=== PATIENT | female | born 1985 | race Caucasian/White ===

== ENCOUNTER 2022-12-27 13:25 | Inpatient (IN) | payer MEDICAID ==
[~2022-12-27] VITALS: Ht 172.7 cm; Wt 58.5 kg
[2022-12-27 14:31] LABS: BASOPHILS % (AUTO) 0.5 % (0.0-2.0); EOSINOPHILS % (AUTO) 0.4 % (1.0-6.0); HEMATOCRIT 40.3 % (36-46); HEMOGLOBIN 13.2 g/dL (12.0-16.0); LYMPHOCYTES # (AUTO) 2.1 K/uL (1.0-4.8); LYMPHOCYTES % (AUTO) 19.2 % (22.0-44.0); MEAN CORPUSCULAR HEMOGLOBIN 29.8 pg (26.0-34.0); MEAN CORPUSCULAR HGB CONC 32.7 G/dL (31.0-37.0); MEAN CORPUSCULAR VOLUME 91 fL (80-100); MONOCYTES # (AUTO) 0.8 K/uL (0.1-1.0); MONOCYTES % (AUTO) 7.3 % (2.0-9.0); NEUTROPHILS % (AUTO) 72.6 % (40.0-70.0); PLATELET COUNT (AUTO) 264 K/uL (150-450); RED BLOOD CELL COUNT(AUTO) 4.42 MIL/uL (4.00-5.20); WHITE BLOOD COUNT (AUTO) 11.1 K/uL (4.5-11.0)
[2022-12-27 14:50] LABS: ALCOHOL, BLOOD (SERUM) < 3 mg/dL (0-10)
[2022-12-27 15:00] LABS: APPEARANCE,URINE HAZY (CLEAR); BILIRUBIN,URINE NEGATIVE (NEGATIVE); COLOR,URINE YELLOW (YELLOW); GLUCOSE, URINE (UA) NEGATIVE (NEGATIVE); KETONES,URINE NEGATIVE (NEGATIVE); LEUKOCYTE ESTERASE ,URINE TRACE (NEGATIVE); NITRATE,URINE NEGATIVE (NEGATIVE); OCCULT BLOOD,URINE NEGATIVE (NEGATIVE); PH,URINE 6.5 (5.0-8.0); PH,URINE DRUG SCREEN 6.5 (5.0-8.0); PROTEIN,URINE 30-70 mg/dL (NEGATIVE); SPECIFIC GRAVITIY, URINE 1.027 (1.003-1.030)
[2022-12-27 15:02] LABS: ALANINE AMINOTRANSFERASE 14 U/L (12-78); ALBUMIN 3.4 g/dL (3.4-5.0); ALKALINE PHOSPHATASE 83 U/L (46-116); ASPARTATE AMINOTRANSFERASE 15 U/L (15-37); BILIRUBIN,TOTAL 0.7 mg/dL (0.1-1.0); CALCIUM, TOTAL 8.9 mg/dL (8.8-10.5); CARBON DIOXIDE 22 mmol/L (22-29); CREATININE 0.51 mg/dL (0.60-1.30); GLOMERULAR FILTR. RATE CALC > 60 mL/min (>60); GLUCOSE,RANDOM 103 mg/dL (70-110); HCG,QUANTITATIVE < 1 mIU/mL (0-6); THYROID STIMULATING HORMONE 1.61 uIU/mL (0.36-3.74); TOTAL PROTEIN, SERUM 7.1 g/dL (6.4-8.2); UREA NITROGEN, BLOOD 14 mg/dL (7-18)
[2022-12-27 15:13] LABS: ANION GAP 12 mmol/L (8-16); CHLORIDE 106 mmol/L (98-107); POTASSIUM 3.5 mmol/L (3.5-5.1); SODIUM SERUM 140 mmol/L (136-145)
[2022-12-27 15:13] LABS: RBC,URINE None Seen /HPF (0-2); SQUAMOUS EPITHELIAL CELL,UR Many /LPF (None Seen)
[2022-12-27 15:15] LABS: ALCOHOL, URINE DRUG SCREEN NEGATIVE (NEGATIVE); AMPHET/METH SCREEN,URINE POSITIVE (NEGATIVE); BACTERIA,URINE Moderate /HPF (None Seen); BARBITURATE SCREEN, URINE NEGATIVE (NEGATIVE); BENZODIAZEPINES SCREEN,URINE NEGATIVE (NEGATIVE); CANNABINOID SCREEN,URINE NEGATIVE (NEGATIVE); COCAINE SCREEN,URINE POSITIVE (NEGATIVE); METHADONE SCREEN, URINE NEGATIVE (NEGATIVE); OPIATE SCREEN,URINE NEGATIVE (NEGATIVE); PHENCYCLIDINE SCREEN,URINE NEGATIVE (NEGATIVE)
[2022-12-27] MEDS ORDERED: LORazepam 1 MG TABLET PO ONE (16:30)
[2022-12-27] MEDS ORDERED: MAGNESIUM HYDROXIDE SUSPENSION 30 ML UDCUP PO PRN (20:15)
[2022-12-27] MEDS ORDERED: MAG HYDROX/AL HYDROX/SIMETH ES 30 ML SUSPENSION UDCUP PO PRN (20:15)
[2022-12-27] MEDS ORDERED: CYANOCOBALAMIN 1,000 MCG/ML VIAL IM ONE (20:15)
[2022-12-27] MEDS ORDERED: OLANZapine 5 MG RAPDIS TABLET PO ONE (20:15)
[2022-12-27] MEDS ORDERED: LOPERAMIDE HCL 2 MG CAPSULE PO PRN (20:15)
[2022-12-27] MEDS ORDERED: TUBERCULIN, PURIFIED PROTEIN DERIVATIVE 5 TU/0.1 ML SYRINGE ID ONE (20:15)
[2022-12-27] MEDS ORDERED: CloNIDine HCL 0.1 MG TABLET PO PRN (20:15)
[2022-12-27] MEDS ORDERED: GuaiFENesin/D-METHORPHAN [SUGAR-FREE] 200-20MG/10 ML SYRUP UDCUP PO PRN (20:15)
[2022-12-27] MEDS ORDERED: GABAPENTIN 300 MG CAPSULE PO PRN (20:15)
[2022-12-27] MEDS: HydrOXYzine PAMOATE 50 MG CAPSULE PO PRN (20:35)
[2022-12-27] MEDS: MELATONIN 5 MG TABLET PO SCH (20:36)
[2022-12-27] MEDS: GABAPENTIN 400 MG CAPSULE PO SCH (20:43)
[2022-12-27] MEDS: THIAMINE 100 MG TABLET PO SCH (20:44)
[2022-12-27] MEDS: ACETAMINOPHEN 325 MG TABLET PO PRN (21:15)
[2022-12-27] MEDS: IBUPROFEN 600 MG TABLET PO PRN (21:15)
[2022-12-27] MEDS: CloNIDine HCL 0.1 MG TABLET PO SCH (22:00)
[2022-12-28 08:30] LABS: HEMOGLOBIN A1C 5.1 % (3.8-5.6)
[2022-12-28 08:33] LABS: CHOL/HDL RATIO 2.1 (3.9-5.7); FREE T4 (FREE THYROXINE) 1.23 ng/dL (0.76-1.46); THYROID STIMULATING HORMONE 1.41 uIU/mL (0.36-3.74)
[2022-12-28] MEDS: OMEGA-3/DHA/EPA/FISH OIL 1,000 MG CAPSULE PO SCH (08:42)
[2022-12-28] MEDS: FOLIC ACID 1 MG TABLET PO SCH (08:43)
[2022-12-28] MEDS: THIAMINE 100 MG TABLET PO SCH ×2 (08:43→16:08)
[2022-12-28] MEDS: MULTIVITAMINS WITH MINERALS, THERAPEUTIC TABLET PO SCH (08:44)
[2022-12-28] MEDS: GABAPENTIN 400 MG CAPSULE PO SCH ×4 (08:49→20:12)
[2022-12-28] MEDS ORDERED: NALTREXONE HCL 50 MG TABLET PO SCH (09:00)
[2022-12-28 09:17] LABS: COVID AG,FIA SOURCE NASAL SWAB
[2022-12-28 09:41] LABS: SARS-COV2 (COVID) ANTIGEN,FIA Negative (Negative)
[2022-12-28] MEDS: CloNIDine HCL 0.1 MG TABLET PO SCH ×3 (12:00→20:12)
[2022-12-28] MEDS ORDERED: GABAPENTIN 400 MG CAPSULE PO ONE (12:15)
[2022-12-28] MEDS ORDERED: QUEtiapine FUMARATE 100 MG TABLET PO ONE (12:15)
[2022-12-28] MEDS ORDERED: PNEUMOCOCCAL VACCINE POLYVALENT 0.5 ML SYRINGE [PPSV23] IM. ONE (12:30)
[2022-12-28 14:15] VITALS: BP 110/68; PULSE 82; RESP 17; TEMP 97.5; O2SAT 98
[2022-12-28 15:15] VITALS: BP 105/70; PULSE 85; RESP 18; TEMP 97.8; O2SAT 97
[2022-12-28] MEDS: QUEtiapine FUMARATE 100 MG TABLET PO PRN (16:08)
[2022-12-28] MEDS: HydrOXYzine PAMOATE 50 MG CAPSULE PO PRN (16:09)
[2022-12-28 16:15] VITALS: BP 102/62; PULSE 81; RESP 18; TEMP 97.5; O2SAT 97
[2022-12-28 17:15] VITALS: RESP 18
[2022-12-28] MEDS: DIVALPROEX SODIUM 500 MG ER TABLET PO SCH (20:12)
[2022-12-28] MEDS: MELATONIN 5 MG TABLET PO SCH (20:12)
[2022-12-28] MEDS ORDERED: OLANZapine 5 MG RAPDIS TABLET PO SCH (21:00)
[2022-12-29 06:02] VITALS: BP 104/66; PULSE 62; RESP 17; TEMP 97.5; O2SAT 97
[2022-12-29] MEDS: CloNIDine HCL 0.1 MG TABLET PO SCH ×4 (06:04→22:17)
[2022-12-29] MEDS: IBUPROFEN 600 MG TABLET PO PRN ×2 (06:04→11:12)
[2022-12-29] MEDS ORDERED: PENICILLIN G BENZATHINE LA 2,400,000 UNITS/4 ML SYRINGE IM ONE (07:45)
[2022-12-29 08:17] VITALS: RESP 18
[2022-12-29] MEDS: MULTIVITAMINS WITH MINERALS, THERAPEUTIC TABLET PO SCH (08:18)
[2022-12-29] MEDS: FOLIC ACID 1 MG TABLET PO SCH (08:18)
[2022-12-29] MEDS: OMEGA-3/DHA/EPA/FISH OIL 1,000 MG CAPSULE PO SCH (08:18)
[2022-12-29] MEDS: GABAPENTIN 400 MG CAPSULE PO SCH ×2 (08:18→12:00)
[2022-12-29] MEDS: THIAMINE 100 MG TABLET PO SCH ×2 (08:18→17:05)
[2022-12-29] MEDS: NITROFURANTOIN MONOHYD/M-CRYST 100 MG CAPSULE [MACROBID] PO SCH ×2 (09:16→17:04)
[2022-12-29 10:07] LABS: TREPONEMA PALLIDUM AB -TPPA Reactive (Non Reactive)
[2022-12-29] MEDS: QUEtiapine FUMARATE 100 MG TABLET PO PRN (11:04)
[2022-12-29] MEDS: HydrOXYzine PAMOATE 50 MG CAPSULE PO PRN (11:04)
[2022-12-29] MEDS ORDERED: GABAPENTIN 400 MG CAPSULE PO ONE (12:15)
[2022-12-29 12:19] VITALS: BP 97/59; PULSE 82; RESP 18; TEMP 97.7; O2SAT 97
[2022-12-29 16:38] VITALS: BP 102/62; PULSE 76; RESP 17; TEMP 97.3; O2SAT 98
[2022-12-29 17:04] VITALS: BP 104/67; PULSE 64; RESP 18; O2SAT 97
[2022-12-29] MEDS: GABAPENTIN 300 MG CAPSULE PO SCH ×2 (17:05→20:29)
[2022-12-29] MEDS: DIVALPROEX SODIUM 500 MG ER TABLET PO SCH (20:28)
[2022-12-29] MEDS: OLANZapine 10 MG RAPDIS TABLET PO SCH (20:29)
[2022-12-29] MEDS: MELATONIN 5 MG TABLET PO SCH (20:29)
[2022-12-29 22:17] VITALS: BP 116/73; PULSE 69; RESP 18; TEMP 97.6; O2SAT 98
[2022-12-30 06:07] LABS: HEPATITIS C AB (EIA) Reactive (Non Reactive)
[2022-12-30 06:20] VITALS: BP 113/70; PULSE 65; RESP 16; TEMP 97.5; O2SAT 98
[2022-12-30] MEDS: CloNIDine HCL 0.1 MG TABLET PO SCH ×4 (06:23→21:07)
[2022-12-30] MEDS: GABAPENTIN 300 MG CAPSULE PO SCH ×4 (08:24→20:50)
[2022-12-30] MEDS: MULTIVITAMINS WITH MINERALS, THERAPEUTIC TABLET PO SCH (08:25)
[2022-12-30] MEDS: THIAMINE 100 MG TABLET PO SCH ×2 (08:25→16:33)
[2022-12-30] MEDS: FOLIC ACID 1 MG TABLET PO SCH (08:25)
[2022-12-30] MEDS: NITROFURANTOIN MONOHYD/M-CRYST 100 MG CAPSULE [MACROBID] PO SCH ×2 (08:25→16:33)
[2022-12-30] MEDS: QUEtiapine FUMARATE 100 MG TABLET PO PRN (08:25)
[2022-12-30] MEDS: OMEGA-3/DHA/EPA/FISH OIL 1,000 MG CAPSULE PO SCH (08:25)
[2022-12-30] MEDS: HydrOXYzine PAMOATE 50 MG CAPSULE PO PRN ×2 (08:25→16:33)
[2022-12-30 08:38] VITALS: BP 109/66; PULSE 69; RESP 16; TEMP 97.6; O2SAT 97
[2022-12-30] MEDS ORDERED: PALIPERIDONE PALMITATE 234 MG/1.5 ML SYRINGE IM ONE (09:00)
[2022-12-30 13:07] VITALS: BP 110/65; PULSE 79; RESP 18; TEMP 97.8; O2SAT 97
[2022-12-30] MEDS: OLANZapine 10 MG RAPDIS TABLET PO SCH (20:49)
[2022-12-30] MEDS: DIVALPROEX SODIUM 500 MG ER TABLET PO SCH (20:49)
[2022-12-30] MEDS: MELATONIN 5 MG TABLET PO SCH (20:51)
[2022-12-30 22:18] VITALS: BP 124/61; PULSE 78; RESP 18; TEMP 98.1; O2SAT 98
[2022-12-31] MEDS: CloNIDine HCL 0.1 MG TABLET PO SCH ×4 (06:12→21:25)
[2022-12-31] MEDS: LOPERAMIDE HCL 2 MG CAPSULE PO PRN ×2 (06:17→14:15)
[2022-12-31 08:13] VITALS: BP 113/62; PULSE 110; RESP 18; TEMP 97.3; O2SAT 97
[2022-12-31 08:15] VITALS: BP 113/62; PULSE 110; RESP 18; TEMP 97.3; O2SAT 97
[2022-12-31] MEDS: OMEGA-3/DHA/EPA/FISH OIL 1,000 MG CAPSULE PO SCH (08:27)
[2022-12-31] MEDS: THIAMINE 100 MG TABLET PO SCH ×2 (08:27→16:21)
[2022-12-31] MEDS: MULTIVITAMINS WITH MINERALS, THERAPEUTIC TABLET PO SCH (08:27)
[2022-12-31] MEDS: GABAPENTIN 300 MG CAPSULE PO SCH ×4 (08:27→20:41)
[2022-12-31] MEDS: FOLIC ACID 1 MG TABLET PO SCH (08:27)
[2022-12-31] MEDS: NITROFURANTOIN MONOHYD/M-CRYST 100 MG CAPSULE [MACROBID] PO SCH ×2 (08:27→16:14)
[2022-12-31] MEDS: IBUPROFEN 600 MG TABLET PO PRN ×2 (08:34→16:33)
[2022-12-31] MEDS: HydrOXYzine PAMOATE 50 MG CAPSULE PO PRN ×2 (10:45→16:31)
[2022-12-31] MEDS: NICOTINE 14 MG/24 HOUR PATCH TD SCH (11:43)
[2022-12-31 14:55] VITALS: BP 106/55; PULSE 71; RESP 16; TEMP 98.1; O2SAT 99
[2022-12-31] MEDS: OLANZapine 10 MG RAPDIS TABLET PO SCH (20:41)
[2022-12-31] MEDS: MELATONIN 5 MG TABLET PO SCH (20:42)
[2022-12-31] MEDS: DIVALPROEX SODIUM 250 MG ER TABLET PO SCH (20:42)
[2022-12-31 21:17] VITALS: BP 138/80; PULSE 67; RESP 18; TEMP 97.5; O2SAT 100
[2023-01-01] MEDS: IBUPROFEN 600 MG TABLET PO PRN (04:30)
[2023-01-01] MEDS: CloNIDine HCL 0.1 MG TABLET PO SCH ×4 (05:58→20:52)
[2023-01-01] MEDS: MULTIVITAMINS WITH MINERALS, THERAPEUTIC TABLET PO SCH (08:06)
[2023-01-01] MEDS: THIAMINE 100 MG TABLET PO SCH ×2 (08:06→16:00)
[2023-01-01] MEDS: GABAPENTIN 300 MG CAPSULE PO SCH ×4 (08:06→20:01)
[2023-01-01] MEDS: HydrOXYzine PAMOATE 50 MG CAPSULE PO PRN (08:06)
[2023-01-01] MEDS: FOLIC ACID 1 MG TABLET PO SCH (08:06)
[2023-01-01] MEDS: OMEGA-3/DHA/EPA/FISH OIL 1,000 MG CAPSULE PO SCH (08:06)
[2023-01-01] MEDS: NITROFURANTOIN MONOHYD/M-CRYST 100 MG CAPSULE [MACROBID] PO SCH ×2 (08:06→16:00)
[2023-01-01] MEDS: METHADONE HCL 10 MG TABLET PO SCH (08:07)
[2023-01-01] MEDS: NICOTINE 14 MG/24 HOUR PATCH TD SCH (08:08)
[2023-01-01 09:57] VITALS: BP 130/69; PULSE 98; RESP 18; TEMP 98.7; O2SAT 100
[2023-01-01 12:26] VITALS: BP 110/62; PULSE 77; RESP 18; TEMP 97.9; O2SAT 98
[2023-01-01] MEDS: OLANZapine 10 MG RAPDIS TABLET PO SCH (20:01)
[2023-01-01] MEDS: DIVALPROEX SODIUM 250 MG ER TABLET PO SCH (20:01)
[2023-01-01] MEDS: MELATONIN 5 MG TABLET PO SCH (20:02)
[2023-01-01 20:31] VITALS: BP 116/72; PULSE 82; RESP 18; TEMP 97.3; O2SAT 97
[2023-01-01 20:45] VITALS: BP 116/64; PULSE 80; RESP 18; TEMP 97.7; O2SAT 100
[2023-01-02] MEDS: CloNIDine HCL 0.1 MG TABLET PO SCH ×4 (06:44→20:06)
[2023-01-02] MEDS: FOLIC ACID 1 MG TABLET PO SCH (08:13)
[2023-01-02] MEDS: OMEGA-3/DHA/EPA/FISH OIL 1,000 MG CAPSULE PO SCH (08:13)
[2023-01-02] MEDS: NITROFURANTOIN MONOHYD/M-CRYST 100 MG CAPSULE [MACROBID] PO SCH ×2 (08:13→16:01)
[2023-01-02] MEDS: METHADONE HCL 10 MG TABLET PO SCH (08:13)
[2023-01-02] MEDS: QUEtiapine FUMARATE 100 MG TABLET PO PRN (08:14)
[2023-01-02] MEDS: THIAMINE 100 MG TABLET PO SCH ×2 (08:14→16:00)
[2023-01-02] MEDS: GABAPENTIN 300 MG CAPSULE PO SCH ×4 (08:14→20:07)
[2023-01-02] MEDS: MULTIVITAMINS WITH MINERALS, THERAPEUTIC TABLET PO SCH (08:14)
[2023-01-02] MEDS: NICOTINE 14 MG/24 HOUR PATCH TD SCH (08:14)
[2023-01-02 09:23] VITALS: BP 102/65; PULSE 95; RESP 17; TEMP 98.2; O2SAT 100
[2023-01-02 11:30] VITALS: BP 112/58; PULSE 78; RESP 17; TEMP 98.2; O2SAT 99
[2023-01-02 17:06] LABS: HEPATITIS C RT-PCR,QNT 256000 IU/mL
[2023-01-02 20:03] VITALS: BP 107/60; PULSE 84; RESP 17; TEMP 97.5; O2SAT 98
[2023-01-02] MEDS: DIVALPROEX SODIUM 250 MG ER TABLET PO SCH (20:07)
[2023-01-02] MEDS: OLANZapine 10 MG RAPDIS TABLET PO SCH (20:07)
[2023-01-02] MEDS: MELATONIN 5 MG TABLET PO SCH (21:00)
[2023-01-03] MEDS: CloNIDine HCL 0.1 MG TABLET PO SCH ×4 (06:00→21:16)
[2023-01-03] MEDS: THIAMINE 100 MG TABLET PO SCH ×2 (08:33→16:44)
[2023-01-03] MEDS: OMEGA-3/DHA/EPA/FISH OIL 1,000 MG CAPSULE PO SCH (08:33)
[2023-01-03] MEDS: HydrOXYzine PAMOATE 50 MG CAPSULE PO PRN (08:33)
[2023-01-03] MEDS: NICOTINE 14 MG/24 HOUR PATCH TD SCH (08:34)
[2023-01-03] MEDS: FOLIC ACID 1 MG TABLET PO SCH (08:34)
[2023-01-03] MEDS: MULTIVITAMINS WITH MINERALS, THERAPEUTIC TABLET PO SCH (08:34)
[2023-01-03] MEDS: METHADONE HCL 10 MG TABLET PO SCH (08:34)
[2023-01-03] MEDS: GABAPENTIN 300 MG CAPSULE PO SCH ×4 (08:34→21:16)
[2023-01-03 08:37] VITALS: BP 133/62; PULSE 84; RESP 18; TEMP 98.3; O2SAT 100
[2023-01-03] MEDS ORDERED: PALIPERIDONE PALMITATE 156 MG/ML SYRINGE IM ONE (09:00)
[2023-01-03 11:15] VITALS: BP 115/95; PULSE 95; RESP 18; TEMP 98; O2SAT 97
[2023-01-03] MEDS: QUEtiapine FUMARATE 100 MG TABLET PO PRN ×2 (12:37→17:59)
[2023-01-03 15:41] VITALS: RESP 18
[2023-01-03] MEDS: ACETAMINOPHEN 325 MG TABLET PO PRN (15:41)
[2023-01-03 16:41] VITALS: RESP 18
[2023-01-03 16:42] VITALS: BP 105/71; PULSE 90; RESP 17; TEMP 97.7; O2SAT 97
[2023-01-03 20:30] VITALS: BP 105/71; PULSE 90; RESP 17; TEMP 97.7; O2SAT 97
[2023-01-03] MEDS: MELATONIN 5 MG TABLET PO SCH (21:15)
[2023-01-03] MEDS: OLANZapine 10 MG RAPDIS TABLET PO SCH (21:16)
[2023-01-03] MEDS: DIVALPROEX SODIUM 250 MG ER TABLET PO SCH (21:16)
[2023-01-04] MEDS: CloNIDine HCL 0.1 MG TABLET PO SCH ×4 (06:20→22:03)
[2023-01-04] MEDS: MULTIVITAMINS WITH MINERALS, THERAPEUTIC TABLET PO SCH (08:23)
[2023-01-04] MEDS: FOLIC ACID 1 MG TABLET PO SCH (08:23)
[2023-01-04] MEDS: OMEGA-3/DHA/EPA/FISH OIL 1,000 MG CAPSULE PO SCH (08:23)
[2023-01-04] MEDS: GABAPENTIN 300 MG CAPSULE PO SCH ×4 (08:24→20:14)
[2023-01-04] MEDS: THIAMINE 100 MG TABLET PO SCH ×2 (08:38→16:38)
[2023-01-04] MEDS: METHADONE HCL 10 MG TABLET PO SCH (08:38)
[2023-01-04] MEDS: NICOTINE 14 MG/24 HOUR PATCH TD SCH (08:39)
[2023-01-04] MEDS: HydrOXYzine PAMOATE 50 MG CAPSULE PO PRN (08:40)
[2023-01-04 08:43] VITALS: BP 114/78; PULSE 84; RESP 18; TEMP 97.6; O2SAT 99
[2023-01-04 13:01] VITALS: BP 106/67; PULSE 87; RESP 19; TEMP 97.5; O2SAT 99
[2023-01-04] MEDS: ACETAMINOPHEN 325 MG TABLET PO PRN (16:37)
[2023-01-04] MEDS: QUEtiapine FUMARATE 100 MG TABLET PO PRN (19:53)
[2023-01-04] MEDS: DIVALPROEX SODIUM 250 MG ER TABLET PO SCH (20:14)
[2023-01-04] MEDS: OLANZapine 10 MG RAPDIS TABLET PO SCH (20:14)
[2023-01-04] MEDS: MELATONIN 5 MG TABLET PO SCH (20:14)
[2023-01-04 20:49] VITALS: BP 117/76; PULSE 93; RESP 18; TEMP 97.4; O2SAT 98
[2023-01-05] MEDS: CloNIDine HCL 0.1 MG TABLET PO SCH ×4 (06:08→22:06)
[2023-01-05 08:19] VITALS: RESP 18
[2023-01-05] MEDS: HydrOXYzine PAMOATE 50 MG CAPSULE PO PRN (08:26)
[2023-01-05] MEDS: METHADONE HCL 10 MG TABLET PO SCH (08:27)
[2023-01-05] MEDS: MULTIVITAMINS WITH MINERALS, THERAPEUTIC TABLET PO SCH (08:28)
[2023-01-05] MEDS: FOLIC ACID 1 MG TABLET PO SCH (08:28)
[2023-01-05] MEDS: THIAMINE 100 MG TABLET PO SCH (08:28)
[2023-01-05] MEDS: GABAPENTIN 300 MG CAPSULE PO SCH ×4 (08:28→20:01)
[2023-01-05] MEDS: OMEGA-3/DHA/EPA/FISH OIL 1,000 MG CAPSULE PO SCH (08:31)
[2023-01-05] MEDS: NICOTINE 14 MG/24 HOUR PATCH TD SCH (12:41)
[2023-01-05 12:54] VITALS: BP 97/59; PULSE 75; RESP 17; TEMP 97.4; O2SAT 94
[2023-01-05] MEDS: ACETAMINOPHEN 325 MG TABLET PO PRN ×2 (16:35→20:36)
[2023-01-05] MEDS: DIVALPROEX SODIUM 250 MG ER TABLET PO SCH (20:01)
[2023-01-05] MEDS: OLANZapine 10 MG RAPDIS TABLET PO SCH (20:01)
[2023-01-05] MEDS: MELATONIN 5 MG TABLET PO SCH (20:01)
[2023-01-05] MEDS: QUEtiapine FUMARATE 100 MG TABLET PO PRN (20:02)
[2023-01-05 20:03] VITALS: BP 112/60; PULSE 98; RESP 18; TEMP 97.6; O2SAT 97
[2023-01-05] MEDS: MAG HYDROX/AL HYDROX/SIMETH ES 30 ML SUSPENSION UDCUP PO PRN (20:33)
[2023-01-06] MEDS: CloNIDine HCL 0.1 MG TABLET PO SCH ×4 (06:19→21:16)
[2023-01-06 07:07] VITALS: BP 108/68; PULSE 86; RESP 18; TEMP 97.8; O2SAT 98
[2023-01-06 08:09] VITALS: RESP 16
[2023-01-06] MEDS: METHADONE HCL 10 MG TABLET PO SCH (09:09)
[2023-01-06] MEDS: OMEGA-3/DHA/EPA/FISH OIL 1,000 MG CAPSULE PO SCH (09:10)
[2023-01-06] MEDS: MULTIVITAMINS WITH MINERALS, THERAPEUTIC TABLET PO SCH (09:11)
[2023-01-06] MEDS: NICOTINE 14 MG/24 HOUR PATCH TD SCH (09:11)
[2023-01-06] MEDS: GABAPENTIN 300 MG CAPSULE PO SCH ×4 (09:11→20:13)
[2023-01-06] MEDS: FOLIC ACID 1 MG TABLET PO SCH (09:11)
[2023-01-06] MEDS: ACETAMINOPHEN 325 MG TABLET PO PRN ×2 (10:50→16:29)
[2023-01-06] MEDS: MAG HYDROX/AL HYDROX/SIMETH ES 30 ML SUSPENSION UDCUP PO PRN (11:05)
[2023-01-06 20:00] VITALS: BP 99/64; PULSE 80; RESP 18; TEMP 97.4; O2SAT 100
[2023-01-06] MEDS: OLANZapine 5 MG RAPDIS TABLET PO SCH (20:12)
[2023-01-06] MEDS: DIVALPROEX SODIUM 250 MG ER TABLET PO SCH (20:13)
[2023-01-06] MEDS: MELATONIN 5 MG TABLET PO SCH (20:18)
[2023-01-07] MEDS: CloNIDine HCL 0.1 MG TABLET PO SCH ×4 (06:09→21:04)
[2023-01-07 08:00] VITALS: BP 97/60; PULSE 86; RESP 18; TEMP 97.3; O2SAT 98
[2023-01-07] MEDS: MULTIVITAMINS WITH MINERALS, THERAPEUTIC TABLET PO SCH (08:43)
[2023-01-07] MEDS: OMEGA-3/DHA/EPA/FISH OIL 1,000 MG CAPSULE PO SCH (08:44)
[2023-01-07] MEDS: GABAPENTIN 300 MG CAPSULE PO SCH ×4 (08:44→20:01)
[2023-01-07] MEDS: NICOTINE 14 MG/24 HOUR PATCH TD SCH (08:46)
[2023-01-07] MEDS: METHADONE HCL 10 MG TABLET PO SCH (08:48)
[2023-01-07] MEDS: ACETAMINOPHEN 325 MG TABLET PO PRN (16:41)
[2023-01-07] MEDS: DIVALPROEX SODIUM 250 MG ER TABLET PO SCH (20:01)
[2023-01-07] MEDS: OLANZapine 5 MG RAPDIS TABLET PO SCH (20:01)
[2023-01-07] MEDS: MELATONIN 5 MG TABLET PO SCH (20:01)
[2023-01-07 23:24] VITALS: BP 117/66; PULSE 78; RESP 18; TEMP 98; O2SAT 96
[2023-01-08] MEDS: CloNIDine HCL 0.1 MG TABLET PO SCH ×4 (06:02→21:47)
[2023-01-08 08:25] VITALS: BP 113/74; PULSE 86; RESP 18; TEMP 98.2; O2SAT 99
[2023-01-08] MEDS: METHADONE HCL 10 MG TABLET PO SCH (08:41)
[2023-01-08] MEDS: GABAPENTIN 300 MG CAPSULE PO SCH ×4 (08:41→20:36)
[2023-01-08] MEDS: OMEGA-3/DHA/EPA/FISH OIL 1,000 MG CAPSULE PO SCH (08:41)
[2023-01-08] MEDS: MULTIVITAMINS WITH MINERALS, THERAPEUTIC TABLET PO SCH (08:42)
[2023-01-08] MEDS: NICOTINE 14 MG/24 HOUR PATCH TD SCH (08:42)
[2023-01-08 16:34] VITALS: BP 109/71; PULSE 89; RESP 18; TEMP 97.5; O2SAT 98
[2023-01-08] MEDS: ACETAMINOPHEN 325 MG TABLET PO PRN (17:27)
[2023-01-08 17:28] VITALS: RESP 18
[2023-01-08] MEDS: QUEtiapine FUMARATE 100 MG TABLET PO PRN (18:12)
[2023-01-08] MEDS: MAG HYDROX/AL HYDROX/SIMETH ES 30 ML SUSPENSION UDCUP PO PRN (18:12)
[2023-01-08 18:27] VITALS: RESP 18
[2023-01-08] MEDS: OLANZapine 5 MG RAPDIS TABLET PO SCH (20:36)
[2023-01-08] MEDS: MELATONIN 5 MG TABLET PO SCH (20:36)
[2023-01-08] MEDS: DIVALPROEX SODIUM 250 MG ER TABLET PO SCH (20:37)
[2023-01-08 21:30] VITALS: BP 117/69; PULSE 87; RESP 17; TEMP 97.7; O2SAT 97
[2023-01-09 06:00] VITALS: BP 112/62; PULSE 77; RESP 18; TEMP 97.7; O2SAT 96
[2023-01-09] MEDS: CloNIDine HCL 0.1 MG TABLET PO SCH ×4 (06:05→20:23)
[2023-01-09] MEDS: NICOTINE 14 MG/24 HOUR PATCH TD SCH (08:12)
[2023-01-09] MEDS: MULTIVITAMINS WITH MINERALS, THERAPEUTIC TABLET PO SCH (08:13)
[2023-01-09] MEDS: GABAPENTIN 300 MG CAPSULE PO SCH ×4 (08:13→20:23)
[2023-01-09] MEDS: METHADONE HCL 10 MG TABLET PO SCH (08:13)
[2023-01-09 08:14] VITALS: BP 113/65; PULSE 88; RESP 16; TEMP 98.2; O2SAT 97
[2023-01-09] MEDS: OMEGA-3/DHA/EPA/FISH OIL 1,000 MG CAPSULE PO SCH (09:27)
[2023-01-09] MEDS: OLANZapine 5 MG RAPDIS TABLET PO SCH (20:24)
[2023-01-09] MEDS: DIVALPROEX SODIUM 250 MG ER TABLET PO SCH (20:24)
[2023-01-09] MEDS: MELATONIN 5 MG TABLET PO SCH (20:27)
[2023-01-10 04:00] VITALS: RESP 16
[2023-01-10] MEDS: CloNIDine HCL 0.1 MG TABLET PO SCH ×4 (06:00→21:46)
[2023-01-10 08:23] VITALS: BP 118/73; PULSE 89; RESP 16; TEMP 98; O2SAT 99
[2023-01-10] MEDS: NICOTINE 14 MG/24 HOUR PATCH TD SCH (08:41)
[2023-01-10] MEDS: OMEGA-3/DHA/EPA/FISH OIL 1,000 MG CAPSULE PO SCH (08:41)
[2023-01-10] MEDS: METHADONE HCL 10 MG TABLET PO SCH (08:41)
[2023-01-10] MEDS: MULTIVITAMINS WITH MINERALS, THERAPEUTIC TABLET PO SCH (08:42)
[2023-01-10] MEDS: GABAPENTIN 300 MG CAPSULE PO SCH ×4 (08:42→21:45)
[2023-01-10] MEDS: MAG HYDROX/AL HYDROX/SIMETH ES 30 ML SUSPENSION UDCUP PO PRN (08:49)
[2023-01-10] MEDS: PROMETHAZINE HCL 25 MG TABLET PO PRN (13:46)
[2023-01-10] MEDS: ACETAMINOPHEN 325 MG TABLET PO PRN (17:29)
[2023-01-10 17:30] VITALS: RESP 18
[2023-01-10 18:29] VITALS: RESP 18
[2023-01-10 20:20] VITALS: BP 123/75; PULSE 96; RESP 19; TEMP 98.1; O2SAT 96
[2023-01-10] MEDS: OLANZapine 5 MG RAPDIS TABLET PO SCH (21:45)
[2023-01-10] MEDS: DIVALPROEX SODIUM 250 MG ER TABLET PO SCH (21:45)
[2023-01-10] MEDS: MELATONIN 5 MG TABLET PO SCH (21:46)
[2023-01-11 06:00] VITALS: BP 106/58
[2023-01-11] MEDS: CloNIDine HCL 0.1 MG TABLET PO SCH ×4 (06:59→22:01)
[2023-01-11 08:01] VITALS: BP 102/68; PULSE 91; RESP 18; TEMP 97.9; O2SAT 99
[2023-01-11] MEDS: OMEGA-3/DHA/EPA/FISH OIL 1,000 MG CAPSULE PO SCH (08:48)
[2023-01-11] MEDS: MULTIVITAMINS WITH MINERALS, THERAPEUTIC TABLET PO SCH (08:48)
[2023-01-11] MEDS: GABAPENTIN 300 MG CAPSULE PO SCH ×4 (08:48→20:01)
[2023-01-11] MEDS: QUEtiapine FUMARATE 100 MG TABLET PO PRN ×2 (08:48→16:04)
[2023-01-11] MEDS: NICOTINE 14 MG/24 HOUR PATCH TD SCH (08:50)
[2023-01-11] MEDS: METHADONE HCL 10 MG TABLET PO SCH (08:51)
[2023-01-11] MEDS: DIVALPROEX SODIUM 250 MG ER TABLET PO SCH (20:00)
[2023-01-11] MEDS: OLANZapine 5 MG RAPDIS TABLET PO SCH (20:01)
[2023-01-11] MEDS: MELATONIN 5 MG TABLET PO SCH (20:01)
[2023-01-11 20:19] VITALS: BP 101/73; PULSE 93; RESP 17; TEMP 97.8; O2SAT 96
[2023-01-12] MEDS: CloNIDine HCL 0.1 MG TABLET PO SCH ×4 (06:01→22:11)
[2023-01-12] MEDS: NICOTINE 14 MG/24 HOUR PATCH TD SCH (08:01)
[2023-01-12] MEDS: GABAPENTIN 300 MG CAPSULE PO SCH ×4 (08:02→20:03)
[2023-01-12] MEDS: METHADONE HCL 10 MG TABLET PO SCH (08:02)
[2023-01-12] MEDS: MULTIVITAMINS WITH MINERALS, THERAPEUTIC TABLET PO SCH (08:02)
[2023-01-12] MEDS: OMEGA-3/DHA/EPA/FISH OIL 1,000 MG CAPSULE PO SCH (08:02)
[2023-01-12 08:05] VITALS: BP 121/69; PULSE 96; RESP 17; TEMP 98.2; O2SAT 100
[2023-01-12] MEDS: QUEtiapine FUMARATE 100 MG TABLET PO PRN ×2 (16:26→22:10)
[2023-01-12] MEDS: ACETAMINOPHEN 325 MG TABLET PO PRN (16:26)
[2023-01-12] MEDS: IBUPROFEN 600 MG TABLET PO PRN (17:33)
[2023-01-12] MEDS: PROMETHAZINE HCL 25 MG TABLET PO PRN (19:55)
[2023-01-12] MEDS: DIVALPROEX SODIUM 250 MG ER TABLET PO SCH (20:03)
[2023-01-12] MEDS: OLANZapine 5 MG RAPDIS TABLET PO SCH (20:04)
[2023-01-12] MEDS: MELATONIN 5 MG TABLET PO SCH (20:04)
[2023-01-12 21:35] VITALS: BP 123/78; PULSE 102; RESP 18; TEMP 98; O2SAT 97
[2023-01-13 06:10] VITALS: BP 111/64; PULSE 88; RESP 17
[2023-01-13] MEDS: CloNIDine HCL 0.1 MG TABLET PO SCH ×4 (06:10→21:09)
[2023-01-13] MEDS: METHADONE HCL 10 MG TABLET PO SCH (08:10)
[2023-01-13] MEDS: NICOTINE 14 MG/24 HOUR PATCH TD SCH (08:10)
[2023-01-13] MEDS: OMEGA-3/DHA/EPA/FISH OIL 1,000 MG CAPSULE PO SCH (08:10)
[2023-01-13] MEDS: QUEtiapine FUMARATE 100 MG TABLET PO PRN (08:10)
[2023-01-13] MEDS: MULTIVITAMINS WITH MINERALS, THERAPEUTIC TABLET PO SCH (08:10)
[2023-01-13] MEDS: GABAPENTIN 300 MG CAPSULE PO SCH ×4 (08:10→20:01)
[2023-01-13 08:28] LABS: BASOPHILS % (AUTO) 0.4 % (0.0-2.0); EOSINOPHILS % (AUTO) 1.3 % (1.0-6.0); HEMATOCRIT 38.3 % (36-46); HEMOGLOBIN 12.7 g/dL (12.0-16.0); LYMPHOCYTES # (AUTO) 1.8 K/uL (1.0-4.8); LYMPHOCYTES % (AUTO) 40.3 % (22.0-44.0); MEAN CORPUSCULAR HEMOGLOBIN 30.7 pg (26.0-34.0); MEAN CORPUSCULAR HGB CONC 33.2 G/dL (31.0-37.0); MEAN CORPUSCULAR VOLUME 93 fL (80-100); MONOCYTES # (AUTO) 0.4 K/uL (0.1-1.0); NEUTROPHILS # (AUTO) 2.2 K/uL (1.8-7.7); PLATELET COUNT (AUTO) 169 K/uL (150-450); RED BLOOD CELL COUNT(AUTO) 4.13 MIL/uL (4.00-5.20); RED CELL DISTRIBUTION WIDTH 16.6 % (11.5-14.5); WHITE BLOOD COUNT (AUTO) 4.5 K/uL (4.5-11.0)
[2023-01-13 08:42] VITALS: BP 128/62; PULSE 102; RESP 18; TEMP 97.4; O2SAT 98
[2023-01-13] MEDS: IBUPROFEN 600 MG TABLET PO PRN (16:27)
[2023-01-13] MEDS: DIVALPROEX SODIUM 250 MG ER TABLET PO SCH (20:01)
[2023-01-13] MEDS: OLANZapine 5 MG RAPDIS TABLET PO SCH (20:01)
[2023-01-13] MEDS: MELATONIN 5 MG TABLET PO SCH (20:01)
[2023-01-13 21:45] VITALS: BP 102/68; PULSE 103; RESP 18; TEMP 97.3; O2SAT 97
[2023-01-14] MEDS: CloNIDine HCL 0.1 MG TABLET PO SCH ×3 (06:16→16:10)
[2023-01-14 08:07] VITALS: BP 112/68; PULSE 100; RESP 18; TEMP 97.3; O2SAT 96
[2023-01-14] MEDS: GABAPENTIN 300 MG CAPSULE PO SCH ×3 (08:29→16:10)
[2023-01-14] MEDS: NICOTINE 14 MG/24 HOUR PATCH TD SCH (08:29)
[2023-01-14] MEDS: QUEtiapine FUMARATE 100 MG TABLET PO PRN (08:29)
[2023-01-14] MEDS: OMEGA-3/DHA/EPA/FISH OIL 1,000 MG CAPSULE PO SCH (08:30)
[2023-01-14] MEDS: METHADONE HCL 10 MG TABLET PO SCH (08:30)
[2023-01-14] MEDS: MULTIVITAMINS WITH MINERALS, THERAPEUTIC TABLET PO SCH (08:30)
[2023-01-14] MEDS ORDERED: GABA-1181 PO (15:49)
[2023-01-14] MEDS ORDERED: DIVA-85 PO (15:49)
[2023-01-14] MEDS ORDERED: NALT50TA PO (15:49)
[2023-01-14] MEDS ORDERED: OLAN5TAB94 PO (15:49)
[2023-01-14] MEDS ORDERED: OMEG-135 PO (15:49)
[2023-01-14] MEDS ORDERED: MELA5TAB40 PO (15:49)
== END 2023-01-14 16:30 | disposition home or self-care (01) | DRG 750 ==
LOC: EMS 13:28 → B2S 12-28 09:18 → B3A 12-28 14:28
PROVIDERS: ADMIT Psychiatry & Neurology Psychiatry; ATTEND Psychiatry & Neurology Psychiatry
DX: F25.0 Schizoaffective disorder, bipolar type (principal); F29 Unspecified psychosis not due to a substance or known physiological condition; A53.9 Syphilis, unspecified; F19.10 Other psychoactive substance abuse, uncomplicated; Z20.822 Contact with and (suspected) exposure to COVID-19; F41.9 Anxiety disorder, unspecified; G43.909 Migraine, unspecified, not intractable, without status migrainosus; J44.9 Chronic obstructive pulmonary disease, unspecified; F17.210 Nicotine dependence, cigarettes, uncomplicated; N39.0 Urinary tract infection, site not specified; Z59.00 Homelessness unspecified; Z76.5 Malingerer [conscious simulation]; Z91.199 Patient's noncompliance with other medical treatment and regimen due to unspecified reason; Z87.19 Personal history of other diseases of the digestive system
CPT/HCPCS: 80053; 80061; 80164; 80307; 81001; 83036; 84439; 84443; 84702; 85025; 86592; 86593; 86780; 86803; 87086; 87186; 87340; 87522; 90732; 99285; G0480; J0561; J3420; Q9967